=== PATIENT | female | born 1980 | race Caucasian/White ===

== ENCOUNTER 2022-08-11 07:30 | Outpatient (CLI) | payer BC | END 2022-08-11 07:31 | disposition home or self-care (01) | LOC: SCSMRI 07:30 | PROVIDERS: ATTEND Podiatrist Foot & Ankle Surgery | DX: M77.42 Metatarsalgia, left foot (principal); R60.0 Localized edema; M79.89 Other specified soft tissue disorders; M71.572 Other bursitis, not elsewhere classified, left ankle and foot ==

== ENCOUNTER 2023-08-17 08:50 | Outpatient (CLI) | payer BC | END 2023-08-17 08:51 | disposition home or self-care (01) | LOC: BICRAD 08:50 | PROVIDERS: ATTEND Clinical Nurse Specialist Medical-Surgical | DX: M25.552 Pain in left hip (principal); M16.12 Unilateral primary osteoarthritis, left hip ==